=== PATIENT | female | born 1980 | race Asian ===

== ENCOUNTER 2020-05-15 13:50 | Emergency (ER) | payer BC, SELFPAY ==
[2020-05-15] VITALS (7 sets, daily range): BP systolic 121–126; BP diastolic 65–75; PULSE 73–85; RESP 16–17; TEMP 36.8; O2SAT 100; BMI 24.7
--- NOTE | 2020-05-15 14:47 | DI.US.S_ITS ---
PROCEDURE: US PELVIC COMPLETE INDICATIONS: LEFT LOWER PELVIC PAIN TECHNIQUE: Real-time scanning was performed of the pelvic organs, with image documentation. Additional endovaginal scanning was necessary due to incomplete visualization of the adnexal and endometrial structures by transabdominal scanning. COMPARISON: None. FINDINGS: Transabdominal scanning: Limited scanning through the kidneys shows no hydronephrosis. No pathologic free abdominal or pelvic fluid. Endovaginal scanning: Uterus: Uterus is normal in size at 6.6 x 5.3 x 3.9 cm. The endometrium measures 12 mm in combined thickness. No focal myometrial lesions are identified. No significant fluid is evident within the endometrial cavity. Ovaries: The right ovary measures 3.0 x 1.0 x 1.1 centimeters. The left ovary measures 2.9 x 1.7 x 1.4 centimeters. Both ovaries are normal in size. No cystic or solid mass is evident. A dominant follicle on the right ovary is incidentally noted. Blood flow is demonstrated to both ovaries, which have a normal arterial Doppler waveform. IMPRESSION: The uterus and ovaries are within normal limits. Dictated by: Marquis Mcfarlane M.D. on 05/15/2020 at 15:20 Approved by: Marquis Mcfarlane M.D. on 05/15/2020 at 15:22
--- NOTE | 2020-05-15 15:08 | ED.ABDPAIN ---
HPI - Abdominal Pain <CHINEDU Garcia - Last Filed: 05/15/20 20:47> General Chief Complaint: Abdominal Pain Stated Complaint: Lower Lt abd pain t-1 Time Seen by Provider: 05/15/20 14:19 Source: patient Mode of arrival: Ambulatory Limitations: no limitations History of Present Illness HPI narrative: 40yo female presents to the emergency department for left lower pelvic/abdominal pain that started yesterday evening. She states the pain came on suddenly lasted for few minutes in gradually decreased but has come back intermittently throughout the day yesterday today. She states the pain is severe and worse when she transitions from lying to standing. Patient denies any fevers, vomiting, nausea, diarrhea, vaginal discharge, vaginal bleeding, chest pain, shortness of breath, or trauma to the area. She denies any change in her stools, no concerns for STIs or . Related Data Allergies Allergy/AdvReac Type Severity Reaction Status Date / Time No Known Drug Allergies Allergy Verified 05/15/20 14:48 Review of Systems <CHINEDU Garcia - Last Filed: 05/15/20 20:47> Review of Systems Narrative: REVIEW OF SYSTEMS: GENERAL: Denies fever. HENT: No head trauma. CARDIOVASCULAR: No chest pain. RESPIRATORY: No shortness of breath. GASTROINTESTINAL: Complains of LLQ abdominal pain, see HPI GENITOURINARY: No flank pain, urinary incontinence, hesitancy, frequency, or dysuria. No vaginal discharge or dyspareunia. Denies concerns for STIs MUSCULOSKELETAL: No pain, weakness, or trauma. INTEGUMENTARY: No rash, lesions, or pruritus. NEURO: No numbness, tingling, memory loss, confusion, or headaches. PSYCH: No behavior or mood changes. Patient History <CHINEDU Garcia - Last Filed: 05/15/20 20:47> Medical History No significant medical problems (Acute) Social History Smoking Status: Never smoker Smoking Status: Never smoker Substance Use Type: does not use Exam <CHINEDU Garcia - Last Filed: 05/15/20 20:47> Initial Vital Signs Initial Vital Signs: Vital Signs Temperature 98.2 F 05/15/20 14:07 Pulse Rate 85 05/15/20 14:07 Respiratory Rate 16 05/15/20 14:07 Blood Pressure 121/65 05/15/20 14:07 Pulse Oximetry 100 05/15/20 14:07 PHYSICAL EXAMINATION: GENERAL: Well groomed, alert, and cooperative. Answers questions promptly and appropriately. Vital signs noted. HENT: Normocephalic, atraumatic. Hearing intact. Oral mucosa is pink and moist. EYES: Conjunctiva pink, sclera white, no periorbital swelling. CARDIOVASCULAR: S1 and S2 sounds normal. Regular rate and rhythm, no murmurs, clicks, or bruits. No pedal edema. RESPIRATORY: Normal respiratory rate, trachea midline, airway patent. No stridor, nasal flaring or accessory muscle use. Lungs are clear in all langley without wheeze, rhonchi, or crackles. GASTROINTESTINAL: Bowel sounds normoactive. Abdomen is soft, LLQ tenderness to deep palpation, no rebound tenderness. No organomegaly, no palpable masses. GENITALURINARY: No flank tenderness. MUSCULOSKELETAL: Normal gait and coordination. Equal tone and mass bilaterally. EXTREMITIES: CMS intact, no pedal edema. SKIN: Warm, dry, soft, appropriate color for ethnicity. No lesions, rashes, or wounds to visualized areas. NEURO: Alert and Oriented X 3. Good coordination. No ataxia, or sensory deficits, or cognitive issues. PSYCH: Appropriate affect and mood. <Elvia Poe DO - Last Filed: 05/16/20 07:32> Initial Vital Signs Initial Vital Signs: Vital Signs Temperature 98.2 F 05/15/20 14:07 Pulse Rate 85 05/15/20 14:07 Respiratory Rate 16 05/15/20 14:07 Blood Pressure 121/65 05/15/20 14:07 Pulse Oximetry 100 05/15/20 14:07 Course <CHINEDU Garcia - Last Filed: 05/15/20 20:47> Course Course Narrative: Upon re-evaluation, patient states she was feeling better, she was able to change position from lying to standing without significant pain. Orders Ordered: Discontinued Medications Sodium Chloride (Normal Saline 0.9%) 1,000 mls @ 1,000 mls/hr IV BOLUS ONE Stop: 05/15/20 15:46 Last Infusion: 05/15/20 16:27 Dose: 0 mls/hr Documented by: Admin: 05/15/20 15:15 Dose: 1,000 mls/hr Documented by: ESTEFANI Ketorolac Tromethamine (Toradol) 30 mg IV NOW ONE Stop: 05/15/20 14:48 Last Admin: 05/15/20 15:15 Dose: 30 mg Documented by: ESTEFANI Consultations Consultation #1: Patient staffed with Dr. Poe, discussed test, test results, plan of care. Vital Signs Vital signs: Vital Signs - 8 hr 05/15/20 14:07 05/15/20 14:54 05/15/20 15:00 Temperature 98.2 F Pulse Rate 85 73 82 Respiratory Rate 16 17 Blood Pressure 121/65 Pulse Oximetry 100 100 100 05/15/20 16:00 05/15/20 16:30 05/15/20 17:00 Temperature Pulse Rate 73 76 76 Respiratory Rate 16 16 Blood Pressure Pulse Oximetry 100 100 100 05/15/20 17:27 Temperature Pulse Rate Respiratory Rate Blood Pressure 126/75 Pulse Oximetry <Elvia Poe, - Last Filed: 05/16/20 07:32> Orders Ordered: Discontinued Medications Sodium Chloride (Normal Saline 0.9%) 1,000 mls @ 1,000 mls/hr IV BOLUS ONE Stop: 05/15/20 15:46 Last Infusion: 05/15/20 16:27 Dose: 0 mls/hr Documented by: Admin: 05/15/20 15:15 Dose: 1,000 mls/hr Documented by: ESTEFANI Ketorolac Tromethamine (Toradol) 30 mg IV NOW ONE Stop: 05/15/20 14:48 Last Admin: 05/15/20 15:15 Dose: 30 mg Documented by: ESTEFANI Vital Signs Vital signs: Vital Signs - 8 hr 05/15/20 14:07 05/15/20 14:54 05/15/20 15:00 Temperature 98.2 F Pulse Rate 85 73 82 Respiratory Rate 16 17 Blood Pressure 121/65 Pulse Oximetry 100 100 100 05/15/20 16:00 05/15/20 16:30 05/15/20 17:00 Temperature Pulse Rate 73 76 76 Respiratory Rate 16 16 Blood Pressure Pulse Oximetry 100 100 100 05/15/20 17:27 Temperature Pulse Rate Respiratory Rate Blood Pressure 126/75 Pulse Oximetry MDM - Abdominal Pain <Cristine CardosoCHINEDU - Last Filed: 05/15/20 20:47> Medical Records Attestation: I reviewed the patient's medical records. Lab Data Attestation: I reviewed the patient's lab results. Result diagrams: 05/15/20 16:45 05/15/20 15:10 Labs: Lab Results 05/15/20 05/15/20 05/15/20 Range/Units 15:10 15:15 16:45 WBC 8.4 (4.5-11.0) X10^3/uL RBC 4.29 (4.0-5.2) X10^6/uL Hgb 13.2 (12.0-16.0) g/dL Hct 39.9 (36-46) % MCV 93.0 (80-100) fL MCH 30.8 (26-34) PG MCHC 33.1 (30-36) % RDW 13.2 (11.6-14.8) % Plt Count 196 (150-400) X10^3/uL Neut % (Auto) 51.1 (50-75) % Lymph % (Auto) 40.1 H (25-40) % Haines % (Auto) 6.1 (3-14) % Eos % (Auto) 2.2 (2-4) % Baso % (Auto) 0.5 (0-2) % Neut # (Auto) 4300 (0745-0497) /uL Lymph # (Auto) 3400 (7198-6575) /uL Haines # (Auto) 500 (0-900) /uL Eos # (Auto) 200 (0-450) /uL Baso # (Auto) 0 (0-100) /uL Sodium 137 (137-145) mmol/L Potassium 4.3 (3.4-5.1) mmol/L Chloride 105 (98-107) mmol/L Carbon Dioxide 26 (22-32) mmol/L BUN 9 (7-17) mg/dL Creatinine 0.62 (0.52-1.04) mg/dL Estimated GFR > 60.0 (>60) mL/min BUN/Creatinine Ratio 14.5 (6-22) Glucose 100 (70-100) mg/dL Calcium 9.9 (8.4-10.2) mg/dL Total Bilirubin 0.8 (0.2-1.3) mg/dL AST 32 (14-36) IU/L ALT 19 (<35) IU/L Alkaline Phosphatase 55 (38-126) U/L Total Protein 8.4 H (6.3-8.2) g/dL Albumin 4.8 (3.5-5.0) g/dL Globulin 3.6 (1.7-4.1) g/dL Albumin/Globulin Ratio 1.3 (1.0-2.8) Lipase 75 (23-300) U/L Urine RBC 0-1/hpf (0-5/HPF) Urine WBC None seen (0-5/HPF) Urine Bacteria None seen (None) Ur Culture Indicated? Cult not indicated Point of care testing: Point of Care Testing Test Results Negative Urine Dip Bedside Urine Glucose Negative Bedside Urine Bilirubin - Negative Bedside Urine Ketone - Negative Urine Specific [place] 1.010 Bedside Urine Occult Blood +/- Bedside Urine pH 6.0 Bedside Urine Protein - Negative Bedside Urine Urobilinogen - Negative Bedside Urine Nitrite - Negative Bedside Urine Leukocytes - Negative Esterase Imaging Data Pelvic US: Radiologist's Impression: [place] [address] Ultrasound Report Signed Patient: Marilee Amador LMR#: [id number] : 1980Acct:[id number] Age/Sex: 40 / FDate of Service: 05/15/20 Loc: ED Accession Number: [id number] Procedure: US pelvic complete Ordering Provider: Cristine Cardoso PROCEDURE: US PELVIC COMPLETE INDICATIONS: LEFT LOWER PELVIC PAIN TECHNIQUE: Real-time scanning was performed of the pelvic organs, with image documentation. Additional endovaginal scanning was necessary due to incomplete visualization of the adnexal and endometrial structures by transabdominal scanning. COMPARISON: None. FINDINGS: Transabdominal scanning: Limited scanning through the kidneys shows no hydronephrosis. No pathologic free abdominal or pelvic fluid. Endovaginal scanning: Uterus: Uterus is normal in size at 6.6 x 5.3 x 3.9 cm. The endometrium measures 12 mm in combined thickness. No focal myometrial lesions are identified. No significant fluid is evident within the endometrial cavity. Ovaries: The right ovary measures 3.0 x 1.0 x 1.1 centimeters. The left ovary measures 2.9 x 1.7 x 1.4 centimeters. Both ovaries are normal in size. No cystic or solid mass is evident. A dominant follicle on the right ovary is incidentally noted. Blood flow is demonstrated to both ovaries, which have a normal arterial Doppler waveform. IMPRESSION: The uterus and ovaries are within normal limits. Dictated by: aMrquis Mcfarlane M.D. on 05/15/2020 at 15:20 Approved by: Marquis Mcfarlane M.D. on 05/15/2020 at 15:22 [facility] Narrative Medical decision making narrative: 40-year-old female presents emergency department for left lower abdominal pain. Differential includes muscle strain as pain is worse with position change. Less concern for ovarian cyst or torsion as pain was decreased with Toradol, ultrasound negative for any concerning findings. No concern for ectopic as patient's urine test was negative. Less concern for infection such as diverticulitis due to lack of diarrhea, patient is afebrile, no white blood cell count. Less concern for intra-abdominal etiology such as appendicitis due to lack of right lower quadrant pain, rebound tenderness, no white blood cell count, no vomiting. Less concern for PID due to lack of vaginal discharge, no concern for STIs. Patient was given very strict return precautions for new or worsening symptoms. She was encouraged to follow up with her primary care provider in 1-2 weeks for further evaluation. Patient agrees to plan of care verbalized understanding. <Elvia Poe, - Last Filed: 05/16/20 07:32> Lab Data Labs: Lab Results 05/15/20 05/15/20 05/15/20 Range/Units 15:10 15:15 16:45 WBC 8.4 (4.5-11.0) X10^3/uL RBC 4.29 (4.0-5.2) X10^6/uL Hgb 13.2 (12.0-16.0) g/dL Hct 39.9 (36-46) % MCV 93.0 (80-100) fL MCH 30.8 (26-34) PG MCHC 33.1 (30-36) % RDW 13.2 (11.6-14.8) % Plt Count 196 (150-400) X10^3/uL Neut % (Auto) 51.1 (50-75) % Lymph % (Auto) 40.1 H (25-40) % Haines % (Auto) 6.1 (3-14) % Eos % (Auto) 2.2 (2-4) % Baso % (Auto) 0.5 (0-2) % Neut # (Auto) 4300 (3287-8316) /uL Lymph # (Auto) 3400 (2519-3332) /uL Haines # (Auto) 500 (0-900) /uL Eos # (Auto) 200 (0-450) /uL Baso # (Auto) 0 (0-100) /uL Sodium 137 (137-145) mmol/L Potassium 4.3 (3.4-5.1) mmol/L Chloride 105 (98-107) mmol/L Carbon Dioxide 26 (22-32) mmol/L BUN 9 (7-17) mg/dL Creatinine 0.62 (0.52-1.04) mg/dL Estimated GFR > 60.0 (>60) mL/min BUN/Creatinine Ratio 14.5 (6-22) Glucose 100 (70-100) mg/dL Calcium 9.9 (8.4-10.2) mg/dL Total Bilirubin 0.8 (0.2-1.3) mg/dL AST 32 (14-36) IU/L ALT 19 (<35) IU/L Alkaline Phosphatase 55 (38-126) U/L Total Protein 8.4 H (6.3-8.2) g/dL Albumin 4.8 (3.5-5.0) g/dL Globulin 3.6 (1.7-4.1) g/dL Albumin/Globulin Ratio 1.3 (1.0-2.8) Lipase 75 (23-300) U/L Urine RBC 0-1/hpf (0-5/HPF) Urine WBC None seen (0-5/HPF) Urine Bacteria None seen (None) Ur Culture Indicated? Cult not indicated Point of care testing: Point of Care Testing Test Results Negative Urine Dip Bedside Urine Glucose Negative Bedside Urine Bilirubin - Negative Bedside Urine Ketone - Negative Urine Specific [place] 1.010 Bedside Urine Occult Blood +/- Bedside Urine pH 6.0 Bedside Urine Protein - Negative Bedside Urine Urobilinogen - Negative Bedside Urine Nitrite - Negative Bedside Urine Leukocytes - Negative Esterase Discharge Plan Departure Patient Disposition: Home Clinical Impression: Abdominal pain Qualifiers: Abdominal location: left lower quadrant Qualified Code(s): R10.32 - Left lower quadrant pain Discharge Date/Time: 05/15/20 17:28 Instructions: DI for Abdominal Pain-Adult Activity Restrictions/Additional Instructions: Thank you for entrusting me with your care today. As discussed, your laboratory work, urinalysis, and ultrasound are non-remarkable. I am unsure the exact cause of your pain, this may be related to ovulation. I recommend taking ibuprofen 400mg every 8 hours for the next 1-2 days to help with pain. Drink plenty of fluids. Call your primary care provider tomorrow to schedule a follow-up appointment in the next 1-2 weeks for further evaluation especially if the pain continues. Return emergency department for any new or worsening symptoms such as severe pain, uncontrollable vomiting, high fevers, or any other concerns. <Elvia Poe DO - Last Filed: 05/16/20 07:32> Cosign ED Attending Viola Attestation: I was immediately available in the department for consultation. Documentation has been reviewed. I agree with assessment and plan.
[2020-05-15] MEDS: KETOROLAC 60 MG/2 ML VIAL 30 MG IV (15:15)
[2020-05-15] MEDS: SODIUM CHLORIDE 0.9% 1,000 ML 1000 ML IV (15:15)
[2020-05-15 15:38] LABS: Alanine Aminotransferase 19 IU/L (<35); Albumin 4.8 g/dL (3.5-5.0); Albumin Globulin Ratio 1.3 (1.0-2.8); Alkaline Phosphatase 55 U/L (38-126); Aspartate Aminotransferase 32 IU/L (14-36); BUN Creatinine Ratio 14.5 (6-22); Bilirubin Total 0.8 mg/dL (0.2-1.3); Blood Urea Nitrogen 9 mg/dL (7-17); Calcium 9.9 mg/dL (8.4-10.2); Carbon Dioxide 26 mmol/L (22-32); Chloride 105 mmol/L (98-107); Estimated Glomerular Filt Rate > 60.0 mL/min (>60); Globulin 3.6 g/dL (1.7-4.1); Glucose 100 mg/dL (70-100); Lipase 75 U/L (23-300); Sodium 137 mmol/L (137-145); Total Protein 8.4 g/dL (6.3-8.2)
[2020-05-15 15:40] LABS: HEMOLYSIS 91 (0-50); Potassium 4.3 mmol/L (3.4-5.1)
[2020-05-15 15:46] LABS: Bacteria Urine None Seen; Culture Indicated Urine Cult Not Indicated; RBC Urine 0-1/HPF (0-5/HPF); WBC Urine None Seen (0-5/HPF)
[2020-05-15 16:52] LABS: Add Manual Diff / Slide Review NO; Basophils Absolute Auto 0 /uL (0-100); Basophils Percent Auto 0.5 % (0-2); Eosinophils Absolute Auto 200 /uL (0-450); Eosinophils Percent Auto 2.2 % (2-4); Hematocrit 39.9 % (36-46); Hemoglobin 13.2 g/dL (12.0-16.0); Lymphocytes Absolute Auto 3400 /uL (1100-4500); Lymphocytes Percent Auto 40.1 % (25-40); Mean Corpuscular HGB Conc 33.1 % (30-36); Mean Corpuscular Hemoglobin 30.8 PG (26-34); Monocytes Absolute Auto 500 /uL (0-900); Monocytes Percent Auto 6.1 % (3-14); Neutrophils Absolute Auto 4300 /uL (1500-7000); Neutrophils Percent Auto 51.1 % (50-75); Platelet Count 196 X10^3/uL (150-400); Red Blood Cell Count 4.29 X10^6/uL (4.0-5.2); Red Cell Distribution Width 13.2 % (11.6-14.8); White Blood Cell Count 8.4 X10^3/uL (4.5-11.0)
== END 2020-05-15 17:28 | disposition home or self-care (01) ==
PROVIDERS: Emergency Provider Nurse Practitioner
DX: R10.32 Left lower quadrant pain (principal)
CPT/HCPCS: 36415; 76830; 76856; 80053; 81003; 81015; 81025; 83690; 85025; 96361; 96374; 99284; J1885

== ENCOUNTER → 2024-05-17 09:49 | Outpatient (CLI) | payer BC, SELFPAY ==
--- NOTE | 2024-05-17 09:52 | DI.CT.S_ITS ---
PROCEDURE: CT HEAD/BRAIN WO CON INDICATIONS: MIGRAINE W/O AURA TECHNIQUE: Noncontrast 4.5 mm thick angled axial sections acquired from the foramen magnum to the vertex, with coronal and sagittal reformats. For radiation dose reduction, the following was used: automated exposure control, adjustment of mA and/or kV according to patient size. COMPARISON: None. FINDINGS: Image quality: Diagnostic. CSF spaces: Basal cisterns are patent. No extra-axial fluid collections. Ventricles are normal in size and shape. Brain: No midline shift. No intracranial masses or hemorrhage. Carpio-white matter interface is normal. Skull and face: Calvarium and visualized facial bones are intact, without suspicious lesions. Sinuses: Visualized sinuses and mastoids are clear. IMPRESSION: No acute intracranial pathology. No finding to explain patient's symptoms. Dictated by: Kenn Gayle M.D. on 05/17/2024 at 20:43 Approved by: Kenn Gayle M.D. on 05/17/2024 at 20:44
== END ==
LOC: CT 09:51
PROVIDERS: Referring Provider Internal Medicine; Visit Provider Internal Medicine
DX: G43.009 Migraine without aura, not intractable, without status migrainosus (principal)
CPT/HCPCS: 70450